=== PATIENT | male | born 1980 | race Caucasian/White ===

== ENCOUNTER 2016-06-27 14:35 | Emergency (ER) | payer OTHER ==
[2016-06-27] MEDS ORDERED: ALBUTEROL/IPRATROPIUM 2.5/0.5 MG 3 ML/EACH DOSE ONE ×2 (15:17→17:21)
[2016-06-27] MEDS ORDERED: METHYLPRED SOD SUCCINATE 125 MG VIAL ONE (15:17)
[2016-06-27 15:28] LABS: ABSOLUTE NEUTROPHIL COUNT 5.7 K/mm3 (1.8-7.7); BASO % 0.5 % (0.2-1.0); EOS % 0.1 % (0.9-2.9); HEMATOCRIT 39.8 % (32.0-52.0); HEMOGLOBIN 11.6 gm/l (14.0-18.0); IMM NEUT # 0.1 K/mm3 (0-0.2); IMM NEUT% 1.8 % (0-1); LYMPH # 1.4 (1.0-4.8); LYMPH % 17.5 % (15-45); MEAN CELL VOLUME 80.6 fl (80.0-94.0); MEAN CORPUSCULAR HEMOGLOBIN 23.5 pg (27.0-31.0); MEAN CORPUSCULAR HGB CONC 29.1 g/dl (33.0-37.0); MEAN PLATELET VOLUME 8.8 fl (7.4-10.4); MONO # 0.5 (0.0-0.8); MONO % 6.6 % (4-12); NEUT % 73.5 % (43-75); PLATELET COUNT 231 K/mm3 (130-400); RED CELL DISTRIBUTION WIDTH 17.3 % (11.5-14.5)
[2016-06-27] MEDS ORDERED: ASPIRIN CHEWTAB 81 MG TABLET ONE (15:56)
[2016-06-27 16:05] LABS: ALB/GLOB RATIO 0.8 (>1.0); ALBUMIN 3.3 gm/dL (3.5-5.7); CALCIUM 9.6 mg/dL (8.6-10.3)
--- NOTE | 2016-06-27 16:29 | RAD ---
CHEST 2 VIEWS HISTORY: Shortness of breath, hypoxia. Frontal and lateral chest radiographs dated 06/27/2016. COMPARISON: None. FINDINGS: FOCAL AIRSPACE OPACITY: No gross airspace consolidation. Coarsened bronchovascular markings. Evaluation limited by soft tissue artifact. PLEURAL EFFUSION: None. CARDIOMEDIASTINAL SILHOUETTE: Nonenlarged. PNEUMOTHORAX: None identified. OSSEOUS STRUCTURES: No grossly destructive lesions. IMPRESSION: Coarsened bronchovascular markings, correlate for bronchitis, atypical/viral infection, or central airways disease. Imaging limited by body habitus.
[2016-06-27] MEDS ORDERED: ENOXAPARIN SODIUM 60 MG/0.6 ML SYRINGE ONE (19:08)
[2016-06-27] MEDS ORDERED: ENOXAPARIN SODIUM 100 MG/ML SYRINGE SUB-Q ONE (19:08)
== END 2016-06-27 21:55 | disposition short-term general hospital (02) ==
LOC: ED 14:35
DX: R09.02 Hypoxemia (principal); R06.02 Shortness of breath; E66.01 Morbid (severe) obesity due to excess calories; R79.89 Other specified abnormal findings of blood chemistry; I10 Essential (primary) hypertension; Z87.891 Personal history of nicotine dependence
CPT/HCPCS: 83880; 85379; 82150; 85025; 82550; 82553; 80053; 84484; 71020; 94640; 94664; 99285 ×2; 96372; 96374; A9270; J1650 ×2; J2930